=== PATIENT | female | born 1940 | race Caucasian/White ===

== ENCOUNTER → 2020-04-26 | Outpatient (CLI) | payer OTHER | LOC: M.RAD 16:19 | PROVIDERS: ATTEND Internal Medicine | DX: R06.02 Shortness of breath (principal) ==

== ENCOUNTER 2020-09-21 15:28 | Inpatient (IN) | payer OTHER ==
[~2020-09-21] VITALS: Ht 157.5 cm; Wt 61.0 kg
[2020-09-21 15:37] VITALS: BP 155/75
[2020-09-21] MEDS ORDERED: OMEPRAZOLE 20 M20 M1 PO (15:42)
[2020-09-21] MEDS ORDERED: LISINOPRIL-HCT1 EACH PO (15:42)
[2020-09-21] MEDS ORDERED: XANAX 0.5 MG0.5 M1 PO (15:42)
[2020-09-21] MEDS ORDERED: VERAPAMIL ER240 M1 PO (15:42)
[2020-09-21] MEDS ORDERED: B12 ACTIVE1000 MCG PO (15:43)
[2020-09-21] MEDS ORDERED: PREMARIN30 GM TOP (15:43)
[2020-09-21] MEDS ORDERED: DULOXETINE HCL20 MG PO (15:43)
[2020-09-21] MEDS ORDERED: VITAMIN C500 M2 PO (15:44)
[2020-09-21] MEDS ORDERED: VITAMIN E1000 UNIT PO (15:44)
[2020-09-21] MEDS ORDERED: MAGNESIUM250 M1 PO (15:44)
[2020-09-21] MEDS ORDERED: XYZBAC TABLET1 EACH PO (15:44)
[2020-09-21] MEDS ORDERED: D3 DOTS50 MCG PO (15:44)
[2020-09-21] MEDS ORDERED: ASA81BEC PO (15:45)
[2020-09-21] MEDS ORDERED: CLARITIN10 M2 PO (15:45)
[2020-09-21 15:59] LABS: ABSOLUTE BASOPHILS 0.2 thou/uL (0.0-0.2); ABSOLUTE EOSINOPHILS 0.1 thou/uL (0.0-0.7); ABSOLUTE MONOCYTES 1.4 thou/uL (0.0-1.2); ABSOLUTE NEUTROPHILS 5.3 thou/uL (1.6-8.1); BASOPHILS 1.3 %; EOSINOPHILS 0.6 %; HEMATOCRIT 40.8 % (37.0-47.0); HEMOGLOBIN 13.2 gm/dL (12.0-15.0); LYMPHOCYTES 49.9 %; MCH 29.6 pg (26.0-34.0); MCHC 32.4 g/dL (28.0-37.0); MCV 91.2 fL (80.0-100.0); MPV 8.6 fl. (7.2-11.1); NUCLEATED RBCS 0 /100WBC; PLATELET COUNT* 323 thou/uL (150-400); POLYS 38.2 %; RBC 4.48 mil/uL (4.20-5.00); RDW-CV 13.2 % (10.5-14.5); WBC 13.9 thou/uL (4.0-11.0)
[2020-09-21 16:05] LABS: CALCIUM 8.8 mg/dL (8.5-10.1)
[2020-09-21 16:18] LABS: ALBUMIN 3.6 g/dL (3.4-5.0); CK-MB MASS 1.2 ng/mL (<0.5-3.6); MAGNESIUM 2.1 mg/dL (1.8-2.4); TOTAL BILIRUBIN 0.5 mg/dL (<0.1-1.0); TOTAL PROTEIN 6.3 g/dL (6.4-8.2)
[2020-09-21 16:21] LABS: POTASSIUM 2.7 mmol/L (3.5-5.1)
[2020-09-21 16:29] LABS: APTT 21.8 Seconds (25.0-31.3); PROTIME 10.8 Seconds (9.20-11.50)
[2020-09-21 20:00] VITALS: BP 125/60
[2020-09-21 20:30] VITALS: BP 155/75
[2020-09-21 23:58] VITALS: BP 124/51
[2020-09-22] VITALS (17 sets, daily range): BP systolic 119–158; BP diastolic 55–87
[2020-09-22 04:25] LABS: CHOLESTEROL 184 mg/dL (<200); HDL CHOLESTEROL 51 mg/dL (>40); LDL CHOLESTEROL 121 mg/dL (<100); TC:HDL 3.6 Ratio (Not establshd); TRIGLYCERIDE 63 mg/dL (<150); VLDL 13 mg/dL (<40)
[2020-09-22 04:30] LABS: SERUM ASSESSMENT Clear
[2020-09-22 11:33] LABS: CALCIUM 8.9 mg/dL (8.5-10.1); CREATININE 0.8 mg/dL (0.6-1.3)
[2020-09-22 11:34] LABS: POTASSIUM 4.4 mmol/L (3.5-5.1)
[2020-09-22 11:37] LABS: TROPONIN-I LEVEL 1.3 ng/mL (<0.06)
--- NOTE | 2020-09-22 13:01 | 2DMMODE ---
[place] [address] 2 D/M-MODE ECHOCARDIOGRAM Name: JACOB RAM Room: [address] IN [facility]#: [id number] Admission: 09/22/20 Attend Phys: Skip Drake, Discharge: Date of : 38 Date of Service: 09/22/20 1301 Report #: [id number] THIS REPORT FOR: cc: Temi Maguire MD, Lin W. MD Holkins, John M. MD [facility] ~ APPROVED REPORT Study performed: 09/22/2020 09:55:24 EXAM: Comprehensive 2D, Doppler, and color-flow Echocardiogram Patient Location: In-Patient Room #: [facility] BSA: 1.54 HR: 86 bpm BP: 131/62 mmHg Other Information Study Quality: Good Indications Chest Pain 2D Dimensions IVSd: 10.83 (7-11mm) LVOT Diam: 20.00 (18-24mm) LVDd: 40.31 mm PWd: 8.24 (7-11mm) Ascending Ao: 30.33 (22-36mm) LVDs: 21.06 (25-40mm) Aortic Root: 26.99 mm Volumes Left Atrial Volume (Systole) LA ESV Index: 15.60 mL/m2 Aortic Valve AoV Peak Richard.: 1.38 m/s AO Peak Gr.: 7.56 mmHg LVOT Max P.84 mmHg AO Mean Gr.: 4.02 mmHg LVOT Mean P.14 mmHg LVOT Max V: 1.31 m/s AO V2 VTI: 27.62 cm LVOT Mean V: 0.80 m/s BAILEE (VTI): 3.09 cm2 LVOT V1 VTI: 27.20 [place] [address] 2 D/M-MODE ECHOCARDIOGRAM Name: JACOB RAM Room: [address] IN .R.#: [id number] Admission: 09/22/20 Attend Phys: Skip Drake, Discharge: Date of : 38 Date of Service: 09/22/20 1301 Report #: [id number] E/A Ratio: 0.73 MV Decel. Time: 248.63 ms MV E Max Richard.: 0.65 m/s MV PHT: 72.10 ms MVA (PHT): 3.05 cm2 TDI E/Lateral E': 8.13 E/Medial E': 10.83 Medial E' Richard.: 0.06 m/s Lateral E' Richard.: 0.08 m/s Pulmonary Valve PV Peak Richard.: 0.97 m/s PV Peak Gr.: 3.80 mmHg Tricuspid Valve RAP Estimate: 5.00 mmHg TR Peak Gr.: 19.15 mmHg RVSP: 24.15 mmHg PA Pressure: 24.15 mmHg Left Ventricle The left ventricle is normal size. There is normal LV segmental wall motion. There is normal left ventricular wall thickness. Left ventricular systolic function is normal. The left ventricular ejection fraction is within the normal range. LVEF is 60%. Grade I - abnormal relaxation pattern. Right Ventricle The right ventricle is normal size. The right ventricular systolic function is normal. Atria The left atrium size is normal. The right atrium size is normal. Aortic Valve Mild aortic valve sclerosis. No aortic regurgitation is present. There is no aortic valvular stenosis. Mitral Valve The mitral valve is normal in structure. There is no mitral valve regurgitation noted. No evidence of mitral valve stenosis. Tricuspid Valve The tricuspid valve is normal in structure. Mild [place]icus[place] [address] 2 D/M-MODE ECHOCARDIOGRAM Name: JACOB RAM Room: [address]#: [id number] Admission: 09/22/20 Attend Phys: Skip Drake, Discharge: Date of : 38 Date of Service: 09/22/20 1301 Report #: [id number] Pulmonic Valve The pulmonary valve is normal in structure. There is no pulmonic valvular regurgitation. Great Vessels The aortic root is normal in size. IVC is normal in size and collapses >50% with inspiration. Pericardium There is no pericardial effusion. <Conclusion> The left ventricle is normal size. There is normal left ventricular wall thickness. Left ventricular systolic function is normal. The left ventricular ejection fraction is within the normal range. LVEF is 60%. Grade I - abnormal relaxation pattern. The right ventricle is normal size. The left atrium size is normal. Mild aortic valve sclerosis. No aortic regurgitation is present. There is no aortic valvular stenosis. The mitral valve is normal in structure. The tricuspid valve is normal in structure. Mild tricuspid regurgitation. IVC is normal in size and collapses >50% with inspiration. There is no pericardial effusion. There is normal LV segmental wall motion. <ELECTRONICALLY SIGNED> By: Wilmer Nugent MD, FACC 09/22/20 1301 1301 1301 Wilmer Nugent MD, FACC /INF
--- NOTE | 2020-09-22 14:26 | EKG ---
[place] [address] ELECTROCARDIOGRAM REPORT Name: JACOB RAM Room: [address] ADM IN .R.#: [id number] Admission: 09/22/20 Attend Phys: Skip Drake, Discharge: Date of : 38 Date of Service: 09/21/20 1535 Report #: [id number] THIS REPORT FOR: //name// [facility] ED Test Date: 2020-09-21 Test Time: 15:35:58 Pat Name: JACOB RAM Department: Room: [facility] Gender: F Range Management Specialist: NNAMDI : 1940 Requested By: Damon River Order Number: [id number] MD: Wilmer Nugent Measurements Intervals [place] Rate: 88 P: 68 [place]: 192 QRS: 16 QRSD: 92 T: 60 QT: 408 QTc: 494 Interpretive Statements Sinus rhythm Borderline low voltage, extremity leads Borderline prolonged QT interval Baseline wander in lead(s) V3 No previous ECG available for comparison Electronically Signed On 09-22-2020 14:26:26 ASSISTANT DIRECTOR OF FINANCIAL AID by Wilmer Nugent [email or web address] <ELECTRONICALLY SIGNED> By: Wilmer Nugent MD, [facility] 09/22/20 1426 1535 1535 Wilmer Nugent MD, [facility] /EPI
--- NOTE | 2020-09-22 16:36 | EKG ---
[place] [address] ELECTROCARDIOGRAM REPORT Name: JACOB RAM Room: [address] IN M.R.#: [id number] Admission: 09/22/20 Attend Phys: Skip Drake, Discharge: Date of : 38 Date of Service: 09/22/20 1440 Report #: [id number] THIS REPORT FOR: //name// [facility] Test Date: 2020-09-22 Test Time: 14:40:44 Pat Name: JACOB RAM Department: Room: [address] Gender: F Painting Instructor: : 1940 Requested By: Wilmer Nugent Order Number: [id number] Joshua MD: Wilmer Nugent Measurements Intervals [place] Rate: 69 P: 65 [place]: 168 QRS: -7 QRSD: 90 T: 70 QT: 396 QTc: 425 Interpretive Statements Sinus rhythm Borderline low voltage, extremity leads Compared to ECG 09/21/2020 15:35:58 No significant changes Electronically Signed On 09-22-2020 16:35:51 HISTORIAN RESEARCH ASSISTANT by Wilmer Nugent [email or web address] <ELECTRONICALLY SIGNED> By: Wilmer Nugent MD, FACC 09/22/20 1635 1440 1440 Wilmer Nugent MD, LOCATED WITHIN [facility] /EPI
--- NOTE | 2020-09-22 17:17 | CARD ---
[address] [address] CARDIAC CATH REPORT Name: JACOB RAM Cirilo Room: [address] IN [facility]#: [id number] Admission: 09/22/20 Attend Phys: Skip Drake MD Discharge: Date of : 38 Report #: [id number] THIS REPORT FOR: cc: Temi Maguire MD, Lin W. MD ~ Wilmer Nugent MD [facility] APPROVED REPORT Study performed: 09/22/2020 12:52:06 Patient Details Patient Status: In-Patient Room #: [facility] The patient is a 79 year-old female Event Personnel Gus Motley RTR Monitor, Skip Stoner Holkins, John Associate Chief Nurse, Pacheco Koch RN optical glass sawyer Performed Left Heart Cath w/or w/o Coronaries [id number] [facility] w/wo Plasty Single LAD [id number] Hemostasis w/ Angioseal Indication Non-STEMI Risk Factors Hypercholesterolemia, Hypertension Admission/Lab Medications/Medications given during procedure Midazolam (Versed) IV 1 mg, Lidocaine Subcut 20 ml, Angiomax IV 9 ml, Angiomax IV 20.79 ml per hr, Nitroglycerin IC 150 mcg, Aspirin PO 162 mg, Ticagrelor PO 180 mg Procedure Narrative The patient was brought urgently to the Cardiac Catheterization Laboratory and was prepped and draped in a sterile manner. The right femoral was infiltrated with 2% Lidocaine subcutaneous anesthesia. A [place] 6 FR sheath was inserted into the right femoral artery. Coronary angiography was performed using coronary diagnostic catheters. The right coronary system was accessed and visualized with a Diagnostic JR4 6Fr catheter. The left coronary system was accessed and visualized with a Diagnostic JL4 6Fr catheter. The left ventricle was accessed and visualized with a Diagnostic Straight [place] 6[address] [place] [address] CARDIAC CATH REPORT Name: JACOB RAM Room: [address]#: [id number] Admission: 09/22/20 Attend Phys: Skip Drake MD Discharge: Date of : 38 Report #: [id number] catheter. Left ventricular/Aortic Valve gradient assessed via catheter pullback. Closure device was deployed with a 6 Fr Angioseal. The patient tolerated the procedure well and there were no complications associated with the procedure. There was no hematoma. Intraoperative Conscious Sedation Sedation start time: 1317 Case end Time: 1402 Versed 2 mg Fluoro Time: 11.8 minutes Dose: DAP 25998 cGycm2 1410.25 mGy Contrast Type and Amount: Visipaque 280 ml Coronary Angiography The patient's coronary anatomy is right dominant. Diagnostic Cath Left Main 0% narrowing LAD 75% proximal and 80% mid LAD stenosis Circumflex 40% mid vessel narrowing Right Coronary Large dominant vessel with 30% mid vessel narrowing Left Ventriculography The left ventricle is normal in size with normal contractility. The left ventricular ejection fraction is estimated to be 55-60%. Left ventricular wall motion abnormalities are not present. There is no mitral insufficiency. Hemodynamics The aortic pressure is 129/55 mmHg with a mean of 84 mmHg. The left ventricular pressure is 128/3 mmHg with a mean of mmHg. The left ventricular end diastolic pressure is 9 mmHg. There was no gradient across the aortic valve upon pullback. PCI Technique Lesion Anticoagulation was achieved with Angiomax. Percutaneous coronary intervention was performed on the proximal left anterior descending artery segment. The lesion stenosis prior to intervention was 80% with DANNY 3 flow. A 6FR XB 3.0 100CM Guide Catheter was used to engage the Left ostium. A IG: ProwaterFlex 180CM Interventional Guidewire [place] [address] CARDIAC CATH REPORT Name: JACOB RAM Room: [address]#: [id number] Admission: 09/22/20 Attend Phys: Skip Drake MD Discharge: Date of : 38 Report #: [id number] BALLOON DILATION A Balloon catheter Trek RX 2.25 X 15 was inserted and inflated up to 10.00atm for 9seconds. Additional Inflation: 12.00atm for 7seconds. Additional Inflation: 15.00atm for 10seconds. STENT DEPLOYMENT A drug-eluting stent Delray RX Stent 2.0X22mm was inserted and inflated up to 12.00atm for 7seconds. Additional Inflation: 12.00atm for 8seconds. POST STENT DEPLOYMENT BALLOON DILATION A Balloon catheter NC Trek RX 2.25x12 was inserted and inflated up to 15.00atm for 9seconds. Additional Inflation: 16.00atm for 8seconds. Additional Inflation: 22.00atm for 8seconds. A Balloon Cather NC Trek RX 2.5x 12 was inserted and Inflated up to 15.00 manuel for 7 seconds. Additional Inflation: 10.00 manuel for 5 seconds. Final angiography reveals 0 % stenosis with DANNY 3 flow. Conclusion 1. Significant coronary artery disease characterized by the following: A tandem 75% proximal and 80% mid LAD stenosis B 40% mid circumflex narrowing C dominant right coronary artery with 30% mid vessel narrowing 2. normal left-ventricular systolic function, estimated ejection fraction 55 - 60% 3. Normal left-sided hemodynamic study 4. Successful PCI with deployment of drug-eluting stent spanning the 75% proximal and 80% mid LAD stenosis with 0% residual narrowing and DANNY-3 flow to the distal vessel Recommendations Cardiac Risk Reduction Program Aggressive Medical Therapy Medications Administered Aspirin (any) [place] [address] CARDIAC CATH REPORT Name: JACOB RAM Room: [address] IN .R.#: [id number] Admission: 09/22/20 Attend Phys: Skip Drake MD Discharge: Date of : 38 Report #: [id number] Ticagrelor Diagnostic Cath Approved by: Wilmer Nugent MD Date/Time: 09/22/2020 17:15:56 <ELECTRONICALLY SIGNED> By: Wilmer Nugent MD, [facility] 09/22/201716 16 16Jovandana Nugent MD, [facility] /INF
[2020-09-23] VITALS: BP 118/61
[2020-09-23 02:06] LABS: GLYCOHEMOGLOBIN (HGB A1C) 5.2 % (4.8-5.6)
[2020-09-23 04:00] VITALS: BP 119/69
[2020-09-23 04:08] LABS: HEMATOCRIT 37.5 % (37.0-47.0); HEMOGLOBIN 12.2 gm/dL (12.0-15.0); MCH 30.1 pg (26.0-34.0); MCHC 32.6 g/dL (28.0-37.0); MCV 92.3 fL (80.0-100.0); MPV 8.6 fl. (7.2-11.1); RBC 4.07 mil/uL (4.20-5.00); RDW-CV 13.2 % (10.5-14.5); WBC 7.7 thou/uL (4.0-11.0)
[2020-09-23 04:30] LABS: ALBUMIN 2.8 g/dL (3.4-5.0); CALCIUM 8.8 mg/dL (8.5-10.1); CREATININE 0.9 mg/dL (0.6-1.3); MAGNESIUM 2.2 mg/dL (1.8-2.4); POTASSIUM 4.5 mmol/L (3.5-5.1); TOTAL BILIRUBIN 0.4 mg/dL (<0.1-1.0); TOTAL PROTEIN 5.1 g/dL (6.4-8.2)
[2020-09-23 05:10] LABS: TROPONIN-I LEVEL 0.67 ng/mL (<0.06)
[2020-09-23 08:00] VITALS: BP 128/70
[2020-09-23] MEDS ORDERED: BRILINTA90 MG PO (09:16)
[2020-09-23] MEDS ORDERED: LIPITOR 40 MG T40 M1 PO (09:16)
[2020-09-23] MEDS ORDERED: CARVEDILOL3.125 MG PO (09:16)
[2020-09-23 09:25] VITALS: BP 128/70
[2020-09-23 10:18] VITALS: BP 128/70
--- NOTE | 2020-09-23 13:40 | EKG ---
[place] [address] ELECTROCARDIOGRAM REPORT Name: JACOB RAM Room: [address] IN M.R.#: [id number] Admission: 09/22/20 Attend Phys: Skip Drake, Discharge: 09/23/20 Date of : 38 Date of Service: 09/23/20 0403 Report #: [id number] THIS REPORT FOR: //name// [facility] Test Date: 2020-09-23 Test Time: 04:03:45 Pat Name: JACOB RAM Department: Room: [address] Gender: F Analytical Engineer: GOGO : 1940 Requested By: Wilmer Nugent Order Number: [id number] Reading MD: Micheal Faye Measurements Intervals [place] Rate: 65 P: 64 NE: 164 QRS: -23 QRSD: 89 T: 91 QT: 410 QTc: 427 Interpretive Statements Sinus rhythm Borderline left axis deviation Nonspecific T abnormalities, lateral leads Compared to ECG 09/22/2020 14:40:44 T-wave abnormality now present Electronically Signed On 09-23-2020 13:39:52 INDUSTRIAL SWEEPER CLEANER by Micheal Faye [email or web address] <ELECTRONICALLY SIGNED> By: Micheal Faye MD, FAC 09/23/20 1339 0403 0403 Micheal Faye MD, [facility] /EPI
== END 2020-09-23 10:30 | disposition home or self-care (01) | DRG 247 ==
LOC: M.ERS 15:28 → M.TBA-ER 16:46 → M.2W 20:17
PROVIDERS: Family Medicine; Internal Medicine; Registered Nurse; ADMIT Internal Medicine; ATTEND Internal Medicine
PROC: 027034Z Dilation of Coronary Artery, One Artery with Drug-eluting Intraluminal Device, Percutaneous Approach (ICD-10-PCS; principal; 2020-09-22)
PROC: B211YZZ Fluoroscopy of Multiple Coronary Arteries using Other Contrast (ICD-10-PCS; principal; 2020-09-22)
PROC: 4A023N7 Measurement of Cardiac Sampling and Pressure, Left Heart, Percutaneous Approach (ICD-10-PCS; principal; 2020-09-22)
PROC: B215YZZ Fluoroscopy of Left Heart using Other Contrast (ICD-10-PCS; principal; 2020-09-22)
DX: I21.4 Non-ST elevation (NSTEMI) myocardial infarction (principal); I25.110 Atherosclerotic heart disease of native coronary artery with unstable angina pectoris; Z20.822 Contact with and (suspected) exposure to COVID-19; I10 Essential (primary) hypertension; E87.6 Hypokalemia; F41.1 Generalized anxiety disorder; R73.9 Hyperglycemia, unspecified; K21.9 Gastro-esophageal reflux disease without esophagitis; E78.5 Hyperlipidemia, unspecified; R91.8 Other nonspecific abnormal finding of lung field; Z79.82 Long term (current) use of aspirin; Z79.899 Other long term (current) drug therapy

== ENCOUNTER 2021-05-19 17:21 | Observation (INO) | payer OTHER ==
[~2021-05-19] VITALS: Ht 152.4 cm; Wt 44.0 kg
[~2021-05-19 17:21] MED LIST: ASA81BEC PO; B12 ACTIVE1000 MCG PO; BRILINTA90 MG PO; CARVEDILOL3.125 MG PO; CLARITIN10 M2 PO; D3 DOTS50 MCG PO; DULOXETINE HCL20 MG PO; LIPITOR 40 MG T40 M1 PO; LISINOPRIL-HCT1 EACH PO; MAGNESIUM250 M1 PO; OMEPRAZOLE 20 M20 M1 PO; PREMARIN30 GM TOP; VERAPAMIL ER240 M1 PO; VITAMIN C500 M2 PO; VITAMIN E1000 UNIT PO; XANAX 0.5 MG0.5 M1 PO; XYZBAC TABLET1 EACH PO
[2021-05-19 17:29] VITALS: BP 163/81
[2021-05-19] MEDS ORDERED: MYAMBUTOL 400400 M1 PO (17:31)
[2021-05-19] MEDS ORDERED: RIFAMPIN 300 M300 MG PO (17:32)
[2021-05-19 20:31] LABS: ABSOLUTE BASOPHILS 0.1 thou/uL (0.0-0.2); ABSOLUTE EOSINOPHILS 0.1 thou/uL (0.0-0.7); ABSOLUTE LYMPHOCYTES 2.9 thou/uL (0.8-5.3); ABSOLUTE MONOCYTES 1.7 thou/uL (0.0-1.2); ABSOLUTE NEUTROPHILS 9.2 thou/uL (1.6-8.1); BASOPHILS 0.6 %; EOSINOPHILS 0.4 %; HEMATOCRIT 39.3 % (37.0-47.0); HEMOGLOBIN 13.2 gm/dL (12.0-15.0); MCH 29.9 pg (26.0-34.0); MCHC 33.6 g/dL (28.0-37.0); MCV 89.1 fL (80.0-100.0); MONOCYTES 12.2 %; MPV 8.2 fl. (7.2-11.1); NUCLEATED RBCS 0 /100WBC; PLATELET COUNT* 342 thou/uL (150-400); POLYS 65.8 %; RBC 4.41 mil/uL (4.20-5.00); RDW-CV 13.5 % (10.5-14.5); WBC 13.9 thou/uL (4.0-11.0)
[2021-05-19 20:35] LABS: CALCIUM 8.9 mg/dL (8.5-10.1); CREATININE 0.8 mg/dL (0.6-1.3); POTASSIUM 3.3 mmol/L (3.5-5.1)
[2021-05-19 20:40] LABS: ALBUMIN 3.6 g/dL (3.4-5.0); TOTAL PROTEIN 6.7 g/dL (6.4-8.2)
[2021-05-20 00:30] VITALS: BP 127/59
[2021-05-20 04:40] VITALS: BP 108/60
--- NOTE | 2021-05-20 08:34 | EKG ---
[place] [address] ELECTROCARDIOGRAM REPORT Name: JACOB RAM Room: [address]#: [id number] Admission: 05/19/21 Attend Phys: Kaylen Gleason, Discharge: Date of : 38 Date of Service: 05/19/21 1724 Report #: [id number] THIS REPORT FOR: //name// [facility] ED Test Date: 2021-05-19 Test Time: 17:24:21 Pat Name: JACOB RAM Department: Room: [facility] Gender: F Wooden Frame Builder: TUYET : 1940 Requested By: Jossie Toledo Order Number: [id number] MD: Romel Freitas Measurements Intervals [place] Rate: 101 P: 37 MA: 146 QRS: -32 QRSD: 92 T: 63 QT: 360 QTc: 467 Interpretive Statements Sinus tachycardia Inferior infarct, old Anterior infarct, old Lateral leads are also involved Compared to ECG 09/23/2020 04:03:45 Sinus rhythm no longer present Electronically Signed On 05-20-2021 8:34:12 CDT by Romel Freitas [email or web address] <ELECTRONICALLY SIGNED> By: Romel Freitas MD, [facility] 05/20/21 0834 1724 1724 Romel Freitas MD, [facility] /EPI
[2021-05-20 08:40] VITALS: BP 128/68
[2021-05-20] MEDS ORDERED: PROTONIX40 M2 PO (09:20)
[2021-05-20] MEDS ORDERED: PHENERGAN 25 MG25 M1 PO (09:20)
[2021-05-20 12:40] VITALS: BP 125/66
[2021-05-20 13:16] VITALS: BP 125/66
--- NOTE | 2021-05-20 13:39 | NUR ---
CM COMPLETED THE INITIAL ASSESSMENT WITH THE PT. PT INDICATED SHE LIVES IN HOME WITH HER SPOUSE, SON AND GRANDSON. PT IS INDEPENDENT WITH ADLS. PT IS "ACTIVE WORKING IN MY YARD." PT STATED SHE HAD [facility] ABOUT 3 WEEKS AGO. SHE ISNT CURRENT WITH . PT USES NO DMES AND DENIES HX WITH SNF. PT INDICATED SHE HAD COVID IN Apr. THERE ARE NO ANTICIPATED CM NEEDS FOR D/C AT THIS TIME.
[2021-05-20 14:14] VITALS: BP 122/68
== END 2021-05-20 14:11 | disposition home or self-care (01) ==
LOC: M.ERS 17:21 → M.TBA-ER 21:32
PROVIDERS: Physician Assistant; ADMIT Internal Medicine; ATTEND Internal Medicine
DX: R07.89 Other chest pain (principal); Z20.822 Contact with and (suspected) exposure to COVID-19; K21.9 Gastro-esophageal reflux disease without esophagitis; R11.0 Nausea; E87.1 Hypo-osmolality and hyponatremia; E87.6 Hypokalemia; E88.09 Other disorders of plasma-protein metabolism, not elsewhere classified; K76.89 Other specified diseases of liver; Z86.19 Personal history of other infectious and parasitic diseases; Z79.82 Long term (current) use of aspirin; Z79.899 Other long term (current) drug therapy

== ENCOUNTER → 2021-05-31 | Outpatient (CLI) | payer OTHER ==
[~2021-05-31] MED LIST changes: +MYAMBUTOL 400400 M1 PO; +PHENERGAN 25 MG25 M1 PO; +PROTONIX40 M2 PO; +RIFAMPIN 300 M300 MG PO
[2021-05-31 15:20] LABS: ALBUMIN 3.2 g/dL (3.4-5.0); CALCIUM 8.6 mg/dL (8.5-10.1); CREATININE 0.7 mg/dL (0.6-1.3); POTASSIUM 3.4 mmol/L (3.5-5.1); TOTAL BILIRUBIN 0.4 mg/dL (<0.1-1.0); TOTAL PROTEIN 6.1 g/dL (6.4-8.2)
== END ==
LOC: M.LAB 14:22
DX: A15.9 Respiratory tuberculosis unspecified (principal)

== ENCOUNTER → 2021-09-07 | Outpatient (CLI) | payer OTHER ==
--- NOTE | 2021-09-07 17:16 | CARDNUC ---
[place] [address] CARDIAC NUCLEAR IMAGING REPORT Name: JACOB RAM Room: [facility]#: [id number] Admission: 09/07/21 Attend Phys: Justin Pedraza Discharge: Date of : 38 Date of Service: 09/07/21 1716 Report #: [id number] THIS REPORT FOR: cc: Temi Maguire MD, Lin W. MD Liston, Michael J. MD [facility] ~ APPROVED REPORT Study performed: 09/07/2021 11:19:07 Exam: Nuclear Stress Test Indication: CAD Patient Location: Out-Patient Stress Tech: JOHNNY MCDONNELL Stress Nurse: Nila Back RN [place] Tech:ALVARO Tejeda Ht: 5 ft 1 in Wt: 106 lbs BSA: 1.44 m2 BMI: 20.02 Medical History Medical History: CAD s/p [place], CAD s/p stent, HTN, Hyperlipidemia Medications: ASA-81, ATORVASTATIN, CARVEDILOL, LISINOPRIL/HCTZ Allergies: No known drug allergies Cardiac Risk Factors: Age, FHX of CAD, HTN, Hyperlipidemia Previous Cardiac Procedures: PCI, Myocardial infarction Exercise History: Indeterminate Meds Held (24 hrs): CARVEDILOL Stress Test Details Stress Test: Pharmacologic stress testing performed using 0.4 mg of regadenoson per 5 mL given IV over 10 seconds. Reason for pharmacologic stress test: physical limitation. HR Resting HR: 68 bpm Max Heart Rate (APMHR): 139 bpm Max HR Achieved: 103 bpm Target HR (85% APMHR): 118 bpm % of APMHR: 74 Recovery HR: 79 bpm BP Resting BP: 139/86 [place] [address] CARDIAC NUCLEAR IMAGING REPORT Name: JACOB RAM Room: [facility]#: [id number] Admission: 09/07/21 Attend Phys: Justin Pedraza Discharge: Date of : 38 Date of Service: 09/07/21 1716 Report #: [id number] Max BP: 133/83 mmHg ECG Resting ECG: Sinus Rhythm Stress ECG: Sinus Tachycardia ST Change: None Arrhythmia: None Recovery ECG: Sinus Rhythm Recovery ST Change: None Recovery Arrhythmia: None Clinical Reason for Termination: Completed protocol The patient tolerated Lexiscan infusion without significant cardiac symptoms. Nurse Comments 60 MG CAFFEINE GIVEN IVP FOR STOMACH CRAMPS. PT HAD COMPLETE RESOLUTION OF SYMPTOMS PRIOR TO LEAVING [facility] Stress ECG Conclusion The baseline twelve-lead EKG shows sinus rhythm without significant ST segment depression. EKGs obtained during and post Lexiscan infusion show sinus rhythm and sinus tachycardia with no significant ST segment or T wave changes when compared to baseline. There were no significant stress-induced arrhythmias. NM EXAM: Myocardial Perfusion REST/STRESS Imaging Protocol: Rest Tc-99m/Stress Tc-99m 1 day Resting Data Rest SPECT myocardial perfusion imaging was performed in supine position 30 minutes following the intravenous injection of 10.5 mCi of Tc-99m Sestamibi. Time of rest injection: 1010 Date: 09/07/2021 The images were gated to evaluate regional wall motion and calculate left ventricular ejection fraction. Administration Route: IV Pharmacologic Stress Pharmacologic stress test was performed by injecting Regadenoson 0.4 mg IV push followed by the intravenous injection of 32.0 mCi of Tc-99m Sestamibi. Time of stress injection: 1120 Date: 09/07/2021 Administration Route: [place] [address] CARDIAC NUCLEAR IMAGING REPORT Name: JACOB RAM Room: [facility]#: [id number] Admission: 09/07/21 Attend Phys: Justin Pedraza Discharge: Date of : 38 Date of Service: 09/07/21 1716 Report #: [id number] Gated Stress SPECT was performed 40 minutes after stress injection. The images were gated to evaluate regional wall motion and calculate left ventricular ejection fraction. Prone imaging was performed. Study Quality Study: Good Artifact: Mild Diaphragmatic artifact Study Data At rest, the left ventricular ejection fraction was 78%.. Post stress, the left ventricular ejection was 77%.. TID = 1.01. Perfusion Perfusion images obtained in the supine position at rest and post Lexiscan stress show photopenia in the inferior wall that resolves with post-rest prone imaging consistent with diaphragmatic attenuation artifact. No other significant defects were identified. Wall Motion Normal left ventricular wall motion. Nuclear Conclusion ECG Findings: negative for ischemia Clinical Findings: negative for ischemia Nuclear Findings: negative for ischemia Exercise Capacity: not assessed Risk Study: low Perfusion images show no defect to suggest infarct or ischemia. Left ventricular systolic function is normal on gated studies. This is a low risk study. <Conclusion> The baseline twelve-lead EKG shows sinus rhythm without significant ST segment depression. EKGs obtained during and post Lexiscan infusion show sinus rhythm and sinus tachycardia with no significant ST segment or T wave changes when compared to baseline. There were no significant stress-induced arrhythmias. <ELECTRONICALLY SIGNED> By: Micheal Faye MD, FACC 09/07/21 1716 15 15 Micheal Faye MD, FACC /INF
== END ==
LOC: M.NUC 08-10 14:47 → M.CRD 09:00 → M.NUC 09:36
PROVIDERS: ATTEND Internal Medicine
DX: I25.10 Atherosclerotic heart disease of native coronary artery without angina pectoris (principal); I21.4 Non-ST elevation (NSTEMI) myocardial infarction; Z95.5 Presence of coronary angioplasty implant and graft